=== PATIENT | female | born 1985 | race African-American/Black ===

== ENCOUNTER 2017-02-12 06:02 | Emergency (ER) | payer SELFPAY ==
[~2017-02-12] VITALS: Ht 162.6 cm; Wt 108.0 kg
[~2017-02-12 06:02] MED LIST: BACT800T5 PO; IBUP-232 PO; IBUP800T23 PO; MUPI2OIN TOPICAL; TYLE3 PO; ZOFR4TAB3 SL
[2017-02-12 06:06] VITALS: BP 132/90; PULSE 77; RESP 16; TEMP 97.7; O2SAT 98
--- NOTE | 2017-02-12 06:26 | PD ---
HPI Chief Complaint: Abdominal Pain Time Seen by Provider: 06:12 Travel History International Travel<30 days: No Contact w/Intl Traveler<30days: No Traveled to known affect area: No History of Present Illness HPI 32-year-old female arrives complaining of urinary frequency and suprapubic abdominal pain. She reports a clear vaginal discharge. She's had no nausea vomiting fever or diarrhea. Last menstruation was about 2 weeks ago. She is sexually active and believes she might have an STD. PFSH Past Medical History Diabetes: Yes Patient Takes Glucophage: No Diminished Hearing: No Thyroid Disease: Yes Tetanus Vaccination: Unknown Influenza Vaccination: No ?: Not LMP: 01/27/17 : 0 Past Surgical History Surgical History: No Previous Surgery Social History Alcohol Use: Yes (OCCASIONALLY) Tobacco Use: No Substance Use: No Allergies-Medications (Allergen,Severity, Reaction): Coded Allergies: *MDRO Multi-Drug Resistant Organism (Verified Adverse Reaction, Unknown, 10/03/16) MRSA (arm-09/30/16) Reported Meds & Prescriptions Reported Meds & Active Scripts Active No Active Prescriptions or Reported Medications Review of Systems Except as stated in HPI: all other systems reviewed are Neg General / Constitutional: No: Fever, Chills Genitourinary: Positive: Urgency, Frequency, Dysuria Physical Exam Narrative GENERAL: 32-year-old female well-nourished well-developed no acute distress : [place] normal. No significant discharge in vault. No suprapubic tenderness. SKIN: Warm and dry. HEAD: Atraumatic. Normocephalic. EYES: Pupils equal and round. No scleral icterus. No injection or drainage. ENT: No nasal bleeding or discharge. Mucous membranes pink and moist. NECK: Trachea midline. No JVD. CARDIOVASCULAR: Regular rate and rhythm. No murmur appreciated. RESPIRATORY: No accessory muscle use. Clear to auscultation. Breath sounds equal bilaterally. GASTROINTESTINAL: Abdomen soft, non-tender, nondistended. Hepatic and splenic margins not palpable. MUSCULOSKELETAL: No obvious deformities. No clubbing. No cyanosis. No edema. NEUROLOGICAL: Awake and alert. No obvious cranial nerve deficits. Motor grossly within normal limits. Normal speech. PSYCHIATRIC: Appropriate mood and affect; insight and judgment normal. Data Data Last Documented VS Vital Signs Date Time Temp Pulse Resp B/P Pulse Ox O2 Delivery O2 Flow Rate FiO2 02/12/17 06:20 16 02/12/17 06:06 97.7 77 132/90 98 Room Air Vital signs reviewed Orders Gc And Chlamydia Pcr (02/12/17 06:19) Wet Prep Profile (02/12/17 06:19) Ed Urine Pregnancytest Poc (02/12/17 06:19) Urinalysis - C+S If Indicated (02/12/17 06:24) Azithromycin Powd Pack (Zithromax Powd P (02/12/17 07:00) Ceftriaxone Inj (Rocephin Inj) (02/12/17 07:00) Lidocaine 1% Inj (50 Ml) (Xylocaine 1% I (02/12/17 07:00) Labs Laboratory Tests Test 02/12/17 02/12/17 06:20 06:30 Urine Color LIGHT-YELLOW Urine Turbidity CLEAR Urine pH 6.0 Urine Specific [place] 1.020 Urine Protein NEG mg/dL Urine Glucose (UA) NEG mg/dL Urine Ketones NEG mg/dL Urine Occult Blood TRACE Urine Nitrite NEG Urine Bilirubin NEG Urine Urobilinogen LESS THAN 2.0 MG/DL Urine Leukocyte Esterase NEG Urine RBC 1 /hpf Urine WBC 1 /hpf Urine Squamous Epithelial 1 /hpf Cells Urine Mucus FEW /lpf Microscopic Urinalysis Comment CULT NOT INDICATED Clue Cells (Wet Prep) NONE SEEN Vaginal Trichomonas (Wet Prep) NONE SEEN Vaginal Yeast (Wet Prep) NONE SEEN MDM Medical Decision Making Medical Screen Exam Complete: Yes Emergency Medical Condition: Yes Medical Record Reviewed: Yes Differential Diagnosis IUP, UTI, ectopic , ov torsion, appendicitis, TOA, cervicitis, BV, Trichomoniasis, ov cyst, hernia, mittelschmerz, pain from menstruation Narrative Course UA: no UTI Upreg: negative Wet prep: negative x 3 Empiric coverage for cervicitis provided. The patient has no obvious etiology for symptoms of dysuria. She is quite well-appearing and her abdomen is benign. We discussed return precautions and she is now ready for discharge. Diagnosis Primary Impression: Dysuria Referrals: Primary Care Physician 2 days Additional Instructions: You have a choice when it comes to health care, and we are glad that you chose [facility]. Hopefully, we have met your expectations on today's visit. You are welcome to return to [facility] at any time, as we are committed to meeting the health care needs of our community. Med/Other Pt SpecificInfo: No Change to Meds Scripts No Active Prescriptions or Reported Meds Disposition: 01 DISCHARGE HOME Condition: Eliecer Crane MD Feb 12, 2017 06:26
[2017-02-12 06:47] LABS: BLOOD, URINE TRACE (NEG); GLUCOSE,URINE NEG (NEG); KETONE, URINE NEG (NEG); MUCUS URINE FEW /lpf (OCC); NITRITE,URINE NEG (NEG); SQUAMOUS EPITHELIAL CELL URINE 1 /hpf (0-5); URINE COLOR LIGHT-YELLOW (YELLW/STRAW)
[2017-02-12 06:49] LABS: COMMENT (UR) CULT NOT INDICATED; CULTURE IF INDICATED CULT NOT INDICATED
[2017-02-12] MEDS ORDERED: cefTRIAXone 250 MG VIAL IM ONE (07:00)
[2017-02-12] MEDS ORDERED: AZITHROMYCIN PWD FOR SUSP 1 GM PACKET PO ONE (07:00)
[2017-02-12] MEDS ORDERED: LIDOCAINE HCL 1% 50 ML VIAL IM ONE (07:00)
[2017-02-12 09:44] LABS: CHLAMYDIA PCR NOT DETECTED (NOT DETECT); NEISSERIA PCR NOT DETECTED (NOT DETECT)
== END 2017-02-12 08:25 | disposition home or self-care (01) ==
LOC: NEPC 06:02
DX: R30.0 Dysuria (principal); N89.8 Other specified noninflammatory disorders of vagina; E11.9 Type 2 diabetes mellitus without complications
CPT/HCPCS: 81001; 84703; 87210; 87491; 87591; 96372; 99284; J0696

== ENCOUNTER 2017-04-11 22:39 | Emergency (ER) | payer SELFPAY ==
[~2017-04-11] VITALS: Ht 152.4 cm; Wt 95.0 kg
[2017-04-11 22:41] VITALS: BP 139/87; PULSE 94; RESP 16; TEMP 97.7; O2SAT 96
[2017-04-12] MEDS ORDERED: SODIUM CHLOR 0.9% 1000 ML INJ 1,000 ML IV SCH (00:41)
[2017-04-12] MEDS ORDERED: MORPHINE SULFATE 4 MG/ML INJ IV PUSH ONE (00:45)
[2017-04-12] MEDS ORDERED: ONDANSETRON HCL 4 MG/2 ML VIAL IVP ONE (00:45)
[2017-04-12] MEDS ORDERED: SODIUM CHLORIDE 0.9% FLUSH 10 ML FLUSH IV FLUSH PRN (00:45)
--- NOTE | 2017-04-12 00:46 | PD ---
HPI Chief Complaint: GI Complaint Time Seen by Provider: 00:35 Travel History International Travel<30 days: No Contact w/Intl Traveler<30days: No Traveled to known affect area: No History of Present Illness HPI 32-year-old female with no significant past medical history presents for evaluation of nausea, vomiting, diarrhea, abdominal pain. She reports that she took a nap at 5 PM. She woke up at 7 PM with the symptoms. She reports several episodes of nonbloody emesis, diarrhea as well as sharp periumbilical abdominal pain. Pain is constant, no aggravating or relieving factors. She denies any flank pain, fevers, vaginal bleeding or discharge, dysuria, chest pain or shortness of breath. She does endorse eating Amharic food and fast food earlier today, she does not know if this is concerning to her symptoms. No recent travel. No other complaints. PFSH Past Medical History Medical History: Denies Significant Hx Diabetes: Yes Diminished Hearing: No Thyroid Disease: Yes Influenza Vaccination: Yes ?: Unknown LMP: 04/04/17 : 0 Past Surgical History Surgical History: No Previous Surgery Social History Alcohol Use: Yes (OCCASIONALLY) Tobacco Use: Yes (2 CIG PER DAY) Substance Use: No Allergies-Medications (Allergen,Severity, Reaction): Coded Allergies: *MDRO Multi-Drug Resistant Organism (Verified Adverse Reaction, Unknown, ) MRSA (arm-09/30/16) Reported Meds & Prescriptions Reported Meds & Active Scripts Active Bentyl (Dicyclomine HCl) 20 Mg Tab 20 Mg PO TID Zofran Odt (Ondansetron Odt) 4 Mg Tab 4 Mg SL Q6HR PRN Review of Systems Except as stated in HPI: all other systems reviewed are Neg Physical Exam Narrative GENERAL: Well-developed well-nourished female who appears uncomfortable on initial examination. SKIN: Warm and dry. HEAD: Atraumatic. Normocephalic. EYES: Pupils equal and round. No scleral icterus. No injection or drainage. ENT: No nasal bleeding or discharge. Mucous membranes pink and moist. NECK: Trachea midline. No JVD. CARDIOVASCULAR: Regular rate and rhythm. No murmur appreciated. RESPIRATORY: No accessory muscle use. Clear to auscultation. Breath sounds equal bilaterally. GASTROINTESTINAL: Abdomen soft, focal right lower quadrant tenderness without guarding. No CVA tenderness. No right upper quadrant tenderness. MUSCULOSKELETAL: No obvious deformities. No clubbing. No edema NEUROLOGICAL: Awake and alert. No obvious cranial nerve deficits. Motor grossly within normal limits. Normal speech. PSYCHIATRIC: Appropriate mood and affect; insight and judgment normal. Data Data Last Documented VS Orders Complete Blood Count With Diff (04/12/17 00:41) Comprehensive Metabolic Panel (04/12/17 00:41) Lipase (04/12/17 00:41) Urinalysis - C+S If Indicated (04/12/17 00:41) Ct Abd/Pel W Iv Contrast(Rout) (04/12/17 00:41) Iv Access Insert/Monitor (04/12/17 00:41) Ecg Monitoring (04/12/17 00:41) Oximetry (04/12/17 00:41) Morphine Inj (Morphine Inj) (04/12/17 00:45) Ondansetron Inj (Zofran Inj) (04/12/17 00:45) Sodium Chlor 0.9% 1000 Ml Inj (Ns 1000 M (04/12/17 00:41) Sodium Chloride 0.9% Flush (Ns Flush) (04/12/17 00:45) Ed Urine Pregnancytest Poc (04/12/17 00:41) Iohexol 350 Inj (Omnipaque 350 Inj) (04/12/17 01:47) Labs Laboratory Tests Test 04/12/17 00:51 White Blood Count 8.9 TH/MM3 Red Blood Count 4.11 MIL/MM3 Hemoglobin 13.0 GM/DL Hematocrit 38.9 % Mean Corpuscular Volume 94.6 FL Mean Corpuscular Hemoglobin 31.6 PG Mean Corpuscular Hemoglobin 33.4 % Concent Red Cell Distribution Width 12.7 % Platelet Count 281 TH/MM3 Mean Platelet Volume 7.8 FL Neutrophils (%) (Auto) 82.2 % Lymphocytes (%) (Auto) 9.1 % Monocytes (%) (Auto) 6.6 % Eosinophils (%) (Auto) 1.7 % Basophils (%) (Auto) 0.4 % Neutrophils # (Auto) 7.3 TH/MM3 Lymphocytes # (Auto) 0.8 TH/MM3 Monocytes # (Auto) 0.6 TH/MM3 Eosinophils # (Auto) 0.2 TH/MM3 Basophils # (Auto) 0.0 TH/MM3 CBC Comment DIFF FINAL Differential Comment Urine Color YELLOW Urine Turbidity HAZY Urine pH 8.0 Urine Specific [place] 1.030 Urine Protein 30 mg/dL Urine Glucose (UA) NEG mg/dL Urine Ketones NEG mg/dL Urine Occult Blood NEG Urine Nitrite NEG Urine Bilirubin NEG Urine Urobilinogen LESS THAN 2.0 MG/DL Urine Leukocyte Esterase NEG Urine RBC 4 /hpf Urine WBC 1 /hpf Urine Squamous Epithelial 11 /hpf Cells Urine Mucus FEW /lpf Microscopic Urinalysis Comment CULT NOT INDICATED Sodium Level 138 MEQ/L Potassium Level 3.9 MEQ/L Chloride Level 104 MEQ/L Carbon Dioxide Level 26.5 MEQ/L Anion Gap 8 MEQ/L Blood Urea Nitrogen 14 MG/DL Creatinine 0.69 MG/DL Estimat Glomerular Filtration 119 ML/MIN Rate Random Glucose 104 MG/DL Calcium Level 8.5 MG/DL Total Bilirubin 0.5 MG/DL Aspartate Amino Transf 18 U/L (AST/SGOT) Alanine Aminotransferase 19 U/L (ALT/SGPT) Alkaline Phosphatase 69 U/L Total Protein 8.2 GM/DL Albumin 3.4 GM/DL Lipase 81 U/L [facility] Medical Decision Making Medical Screen Exam Complete: Yes Emergency Medical Condition: Yes Medical Record Reviewed: Yes Differential Diagnosis Gastroenteritis, appendicitis, tubo-ovarian abscess, ovarian torsion, colitis, biliary pathology Narrative Course 32-year-old female who woke up this evening at 7 PM with sharp periumbilical abdominal pain, nausea, vomiting, diarrhea. On examination her pain is focally reproducible to palpation right lower quadrant without guarding. CT of the abdomen and pelvis has been ordered to assess for any evidence of appendicitis. The patient be given IV fluids, Zofran, morphine, basic lab work has been ordered. 2300: At the end of my shift pending lab work and imaging studies the patient was signed out to Dr. Garcia. Scripts Dicyclomine (Bentyl)20 Mg Tab20 Mg PO TID #21 TAB Prov:Mendez Garcia MD 04/12/17 Ondansetron Odt (Zofran Odt)4 Mg Tab4 Mg SL Q6HR PRN (Nausea/Vomiting) #10 TAB Prov:Mendez Garcia MD 04/12/17 Osiel Mejia April 12, 2017 00:46
[2017-04-12 01:10] LABS: AUTOMATED NEUTROPHIL # 7.3 TH/MM3 (1.8-7.7); BASOPHIL % 0.4 % (0.0-2.0); EOSINOPHIL # 0.2 TH/MM3 (0-0.4); EOSINOPHIL % 1.7 % (0.0-4.0); HEMATOCRIT 38.9 % (35.0-46.0); HEMO FLAGS DIFF FINAL; LYMPH % 9.1 % (9.0-44.0); LYMPHOCYTE # 0.8 TH/MM3 (1.0-4.8); MEAN CELL VOLUME 94.6 FL (80.0-100.0); MEAN CORPUSCULAR HEMOGLOBIN 31.6 PG (27.0-34.0); MEAN CORPUSCULAR HGB CONC 33.4 % (32.0-36.0); MONO % 6.6 % (0.0-8.0); NEUT % 82.2 % (16.0-70.0); PLATELET COUNT 281 TH/MM3 (150-450); RED BLOOD COUNT 4.11 MIL/MM3 (4.00-5.30); RED CELL DISTRIBUTION WIDTH 12.7 % (11.6-17.2); WHITE BLOOD COUNT 8.9 TH/MM3 (4.0-11.0)
[2017-04-12 01:12] LABS: BLOOD, URINE NEG (NEG); COMMENT (UR) CULT NOT INDICATED; CULTURE IF INDICATED CULT NOT INDICATED; GLUCOSE,URINE NEG (NEG); KETONE, URINE NEG (NEG); MUCUS URINE FEW /lpf (OCC); NITRITE,URINE NEG (NEG); SQUAMOUS EPITHELIAL CELL URINE 11 /hpf (0-5); URINE COLOR YELLOW (YELLW/STRAW)
[2017-04-12 01:32] LABS: ALT (GPT) 19 U/L (10-53); ANION GAP 8 MEQ/L (5-15); AST (GOT) 18 U/L (15-37); BICARBONATE 26.5 MEQ/L (21.0-32.0); BLOOD UREA NITROGEN 14 MG/DL (7-18); CHLORIDE 104 MEQ/L (98-107); GLOMERULAR FILTRATION RATE 119 ML/MIN (>89); POTASSIUM 3.9 MEQ/L (3.5-5.1); SODIUM (NA) 138 MEQ/L (136-145)
[2017-04-12 01:35] LABS: ALKALINE PHOSPHATASE 69 U/L (45-117); TOTAL BILIRUBIN ADULT 0.5 MG/DL (0.2-1.0)
[2017-04-12] MEDS ORDERED: IOHEXOL 350 MG/ML 10 ML VIAL (for RAD DIAG) IV ONE (01:47)
--- NOTE | 2017-04-12 02:01 | RADRPT ---
EXAM DATE/TIME: 04/12/2017 01:31 [place] COMPARISON: No previous studies available for comparison. INDICATIONS : Diffuse abdominal pain. IV CONTRAST: 100 cc Omnipaque 350 (iohexol) IV ORAL CONTRAST: No oral contrast ingested. RADIATION DOSE: 22.38 CTDIvol (mGy) MEDICAL HISTORY : Diabetes mellitus type 2. SURGICAL HISTORY : None. ENCOUNTER: Initial ACUITY: 1 day PAIN SCALE: 10/10 LOCATION: abdomen TECHNIQUE: Volumetric scanning of the abdomen and pelvis was performed. Using automated exposure control and ad justment of the mA and/or kV according to patient size, radiation dose was kept as low as reasonably achievable to obtain optimal diagnostic quality images. FINDINGS: LOWER LUNGS: The visualized lower lungs are clear. LIVER: Homogeneous density without lesion. There is no dilation of the biliary tree. No calcified gallston es. SPLEEN: Normal size without lesion. PANCREAS: Within normal limits. KIDNEYS: Normal in size and shape. There is no mass, stone or hydronephrosis. ADRENAL GLANDS: Within normal limits. VASCULAR: There is no aortic aneurysm. BOWEL/MESENTERY: The stomach, small bowel, and colon demonstrate no acute abnormality. There is no free intraperitone al air or fluid. The appendix is unremarkable. No inflammatory changes are seen. There is stool in th e colon. ABDOMINAL WALL: Within normal limits. RETROPERITONEUM: There is no lymphadenopathy. BLADDER: No wall thickening or mass. REPRODUCTIVE: There is a diffusely enlarged bulky fibroid uterus measuring at least 13.3 x 7.5 cm. There is a parti ally calcified fibroid which is pedunculated off the superior aspect of the uterus. This measures noel roximately 3.8 cm. No free fluid in the cul-de-sac. The ovaries are not visualized. INGUINAL: There is no lymphadenopathy or hernia. MUSCULOSKELETAL: Within normal limits for patient age. CONCLUSION: 1. Bulky enlarged fibroid uterus. 2. Otherwise, unremarkable exam for patient's age. Flavio Cox MD on April 12, 2017 at 1:55 Board Certified Radiologist. This report was verified electronically.
[2017-04-12] MEDS ORDERED: ZOFR4TAB3 SL (02:44)
[2017-04-12] MEDS ORDERED: BENT20TA PO (02:44)
--- NOTE | 2017-04-12 02:44 | PD ---
Physical Exam Narrative Patient was seen by my delinquent tax collector assistant and signed out to me. Data Data Last Documented VS Vital Signs Date Time Temp Pulse Resp B/P Pulse Ox O2 Delivery O2 Flow Rate FiO2 04/11/17 22:41 97.7 94 16 139/87 96 Room Air Orders Complete Blood Count With Diff (04/12/17 00:41) Comprehensive Metabolic Panel (04/12/17 00:41) Lipase (04/12/17 00:41) Urinalysis - C+S If Indicated (04/12/17 00:41) Ct Abd/Pel W Iv Contrast(Rout) (04/12/17 00:41) Iv Access Insert/Monitor (04/12/17 00:41) Ecg Monitoring (04/12/17 00:41) Oximetry (04/12/17 00:41) Morphine Inj (Morphine Inj) (04/12/17 00:45) Ondansetron Inj (Zofran Inj) (04/12/17 00:45) Sodium Chlor 0.9% 1000 Ml Inj (Ns 1000 M (04/12/17 00:41) Sodium Chloride 0.9% Flush (Ns Flush) (04/12/17 00:45) Ed Urine Pregnancytest Poc (04/12/17 00:41) Iohexol 350 Inj (Omnipaque 350 Inj) (04/12/17 01:47) Labs Laboratory Tests Test 04/12/17 00:51 White Blood Count 8.9 TH/MM3 Red Blood Count 4.11 MIL/MM3 Hemoglobin 13.0 GM/DL Hematocrit 38.9 % Mean Corpuscular Volume 94.6 FL Mean Corpuscular Hemoglobin 31.6 PG Mean Corpuscular Hemoglobin 33.4 % Concent Red Cell Distribution Width 12.7 % Platelet Count 281 TH/MM3 Mean Platelet Volume 7.8 FL Neutrophils (%) (Auto) 82.2 % Lymphocytes (%) (Auto) 9.1 % Monocytes (%) (Auto) 6.6 % Eosinophils (%) (Auto) 1.7 % Basophils (%) (Auto) 0.4 % Neutrophils # (Auto) 7.3 TH/MM3 Lymphocytes # (Auto) 0.8 TH/MM3 Monocytes # (Auto) 0.6 TH/MM3 Eosinophils # (Auto) 0.2 TH/MM3 Basophils # (Auto) 0.0 TH/MM3 CBC Comment DIFF FINAL Differential Comment Urine Color YELLOW Urine Turbidity HAZY Urine pH 8.0 Urine Specific [place] 1.030 Urine Protein 30 mg/dL Urine Glucose (UA) NEG mg/dL Urine Ketones NEG mg/dL Urine Occult Blood NEG Urine Nitrite NEG Urine Bilirubin NEG Urine Urobilinogen LESS THAN 2.0 MG/DL Urine Leukocyte Esterase NEG Urine RBC 4 /hpf Urine WBC 1 /hpf Urine Squamous Epithelial 11 /hpf Cells Urine Mucus FEW /lpf Microscopic Urinalysis Comment CULT NOT INDICATED Sodium Level 138 MEQ/L Potassium Level 3.9 MEQ/L Chloride Level 104 MEQ/L Carbon Dioxide Level 26.5 MEQ/L Anion Gap 8 MEQ/L Blood Urea Nitrogen 14 MG/DL Creatinine 0.69 MG/DL Estimat Glomerular Filtration 119 ML/MIN Rate Random Glucose 104 MG/DL Calcium Level 8.5 MG/DL Total Bilirubin 0.5 MG/DL Aspartate Amino Transf 18 U/L (AST/SGOT) Alanine Aminotransferase 19 U/L (ALT/SGPT) Alkaline Phosphatase 69 U/L Total Protein 8.2 GM/DL Albumin 3.4 GM/DL Lipase 81 U/L [facility] Supervised Visit with FINESSE: Yes Interpretation(s) Last Impressions Abdomen/Pelvis CT 04/12/17 0041 Signed Impressions: Service Date/Time: Wednesday, April 12, 2017 01:31 - CONCLUSION: 1. Bulky enlarged fibroid uterus. 2. Otherwise, unremarkable exam for patient's age. Flavio Cox MD 2:39 AM. CBC within normal limit. CMP within normal limit. UA is negative. Diagnosis Primary Impression: Gastroenteritis Patient Instructions: General Instructions Additional Instruction: Take medications as directed. Follow-up with personal physician. Return if persistent problem or worse. Med/Other Pt SpecificInfo: Prescription(s) given Scripts Dicyclomine (Bentyl)20 Mg Tab20 Mg PO TID #21 TAB Prov:Mendez Garcia MD 04/12/17 Ondansetron Odt (Zofran Odt)4 Mg Tab4 Mg SL Q6HR PRN (Nausea/Vomiting) #10 TAB Prov:Mendez Garcia MD 04/12/17 Disposition: 01 DISCHARGE HOME Condition: Stable Mendez Garcia MD April 12, 2017 02:44
== END 2017-04-12 03:06 | disposition home or self-care (01) ==
LOC: NEPC 22:39
DX: Z72.0 Tobacco use (principal); K52.9 Noninfective gastroenteritis and colitis, unspecified; D25.9 Leiomyoma of uterus, unspecified
CPT/HCPCS: 74177; 80053; 81001; 83690; 84703; 85025; 96374; 96375; 99284; J2270; J2405; J7030; Q9967

== ENCOUNTER 2017-05-10 20:26 | Emergency (ER) | payer SELFPAY ==
[~2017-05-10] VITALS: Ht 152.4 cm; Wt 114.0 kg
[~2017-05-10 20:26] MED LIST changes: -BACT800T5 PO; +BENT20TA PO; -IBUP-232 PO; -IBUP800T23 PO; -MUPI2OIN TOPICAL; -TYLE3 PO
[2017-05-10 20:31] VITALS: BP 116/77; PULSE 115; RESP 16; TEMP 98.2; O2SAT 97
[2017-05-10] MEDS ORDERED: BROMSYP PO (20:47)
--- NOTE | 2017-05-10 20:48 | PD ---
HPI Chief Complaint: ENT Complaint Time Seen by Provider: 20:41 Travel History International Travel<30 days: No Contact w/Intl Traveler<30days: No Traveled to known affect area: No History of Present Illness HPI 32-year-old female presents emergency department for evaluation of sore throat, nasal congestion, cough for one week. Symptoms severity mild. Slightly improved with [id number] cough medicine. She reports that her spouse has similar symptoms at home. She denies fevers, chills, headache, rash. She has no past medical history. No allergies to meds. PFSH Past Medical History Medical History: Denies Significant Hx Diabetes: Yes Patient Takes Glucophage: No Diminished Hearing: No Thyroid Disease: Yes Tetanus Vaccination: > 5 Years Influenza Vaccination: Yes ?: Unknown : 0 Past Surgical History Surgical History: No Previous Surgery Social History Alcohol Use: Yes (OCCASIONALLY) Tobacco Use: Yes (2 CIG PER WEEK) Substance Use: No Allergies-Medications (Allergen,Severity, Reaction): Coded Allergies: *MDRO Multi-Drug Resistant Organism (Verified Adverse Reaction, Unknown, ) MRSA (arm-09/30/16) Reported Meds & Prescriptions Reported Meds & Active Scripts Active No Active Prescriptions or Reported Medications Review of Systems Except as stated in HPI: all other systems reviewed are Neg Physical Exam Narrative GENERAL: Well-nourished, well-developed patient. SKIN: Focused skin assessment warm/dry. No rashes HEAD: Normocephalic. Atraumatic EYES: No scleral icterus. No injection or drainage. NECK: Supple, trachea midline. No JVD or lymphadenopathy. ENT: Mild pharyngeal/tonsillar erythema without exudate. Uvula midline. CARDIOVASCULAR: Regular rate and rhythm without murmurs, gallops, or rubs. RESPIRATORY: Breath sounds equal bilaterally. No accessory muscle use. GASTROINTESTINAL: Abdomen soft, non-tender, nondistended. MUSCULOSKELETAL: No cyanosis, or edema. BACK: Nontender without obvious deformity. No CVA tenderness. Data Data Last Documented VS Vital Signs Date Time Temp Pulse Resp B/P Pulse Ox O2 Delivery O2 Flow Rate FiO2 05/10/17 20:40 05/10/17 20:39 Room Air 05/10/17 20:31 98.2 115 16 97 MDM Medical Decision Making Medical Screen Exam Complete: Yes Emergency Medical Condition: Yes Differential Diagnosis Viral pharyngitis, strep pharyngitis, bronchitis, pneumonia Narrative Course 32-year-old female presents emergency department for evaluation of nasal congestion, sore throat, cough 1 week. Patient's symptoms are mild. Her exam is consistent with a viral upper respiratory infection. Diagnosis Primary Impression: Viral URI with cough Referrals: Primary Care Physician Departure Forms: Tests/Procedures, Work Release Enter return to work date: May 12, 2017 Scripts Fhfqjoeshnrauiu-Wzzdhhsacjybufa-AM Liq (Bromfed DM Liq)30-2-10 Mg/5 Ml Syrp5 Ml PO Q6H PRN (COUGH AND/OR COLD SYMPTOMS) #120 ML Ref 0 Prov:Martina Lo 05/10/17 Disposition: 01 DISCHARGE HOME Condition: Stable Martina Lo May 10, 2017 20:48
== END 2017-05-10 20:56 | disposition home or self-care (01) ==
LOC: PHEFT 20:26
DX: J06.9 Acute upper respiratory infection, unspecified (principal); R05 Cough; R09.81 Nasal congestion; J02.9 Acute pharyngitis, unspecified; E11.9 Type 2 diabetes mellitus without complications; Z72.0 Tobacco use
CPT/HCPCS: 99283

== ENCOUNTER 2017-11-11 11:31 | Emergency (ER) | payer SELFPAY ==
[~2017-11-11] VITALS: Ht 152.4 cm; Wt 126.0 kg
[~2017-11-11 11:31] MED LIST changes: -BENT20TA PO; +BROMSYP PO; -ZOFR4TAB3 SL
[2017-11-11 11:40] VITALS: BP 151/91; PULSE 96; RESP 16; TEMP 98.9; O2SAT 97
[2017-11-11 12:05] LABS: BLOOD, URINE SMALL (NEG); GLUCOSE,URINE NEG (NEG); KETONE, URINE NEG (NEG); NITRITE,URINE NEG (NEG)
[2017-11-11 12:29] LABS: METHOD OF COLLECTION VOIDED; URINE COLOR YELLOW (YELLW/STRAW)
[2017-11-11 12:31] LABS: MUCUS URINE RARE /lpf (OCC)
[2017-11-11 12:32] LABS: RBC, URINE 0-3 /hpf (0-3); SQUAMOUS EPITHELIAL CELL URINE >8 /hpf (0-5); WBC, URINE 0-2 /hpf (0-5)
[2017-11-11 12:33] LABS: BACTERIA, URINE RARE /hpf; COMMENT (UR) CULT NOT INDICATED; CULTURE IF INDICATED CULT NOT INDICATED
--- NOTE | 2017-11-11 13:00 | PD ---
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 She denies any vomiting, fevers, abdominal pains, or any other symptoms. She is sexually active and has her partner with her, states that she does practice oral sex. Partner denies any symptoms. Modifying Factors: None Associated Signs & Symptoms: Vaginal discharge, sore throat Risk Factors: Sexually active PFSH Past Medical History Diabetes: Yes Patient Takes Glucophage: No Diminished Hearing: No Thyroid Disease: Yes Influenza Vaccination: Yes ?: Not LMP: 11/02/17 : 0 Past Surgical History Oral Surgery: Yes Social History Alcohol Use: Yes (OCCASIONALLY) Tobacco Use: No Substance Use: No Allergies-Medications (Allergen,Severity, Reaction): Coded Allergies: *MDRO Multi-Drug Resistant Organism (Verified Adverse Reaction, Unknown, ) MRSA (arm-09/30/16) Reported Meds & Prescriptions Reported Meds & Active Scripts Active Bromfed DM Liq (Yvxodtpymtnysep-Shggzoacoggctuz-BF Liq) 30-2-10 Mg/5 Ml Syrp 5 Ml PO Q6H PRN Review of Systems Except as stated in HPI: all other systems reviewed are Neg Physical Exam Narrative GENERAL: Well-developed young -[place] female patient currently in mild distress. Awake and oriented 3. SKIN: Focused skin assessment warm/dry. HEAD: Atraumatic. Normocephalic. EYES: Pupils equal and round. No scleral icterus. No injection or drainage. ENT: No nasal bleeding or discharge. Mucous membranes pink and moist. There is notable pharyngeal erythema with right tonsillar exudates. NECK: Trachea midline. No JVD. CARDIOVASCULAR: Regular rate and rhythm. No murmur appreciated. RESPIRATORY: No accessory muscle use. Clear to auscultation. Breath sounds equal bilaterally. GASTROINTESTINAL: Abdomen soft, non-tender, nondistended. Hepatic and splenic margins not palpable. MUSCULOSKELETAL: No obvious deformities. No clubbing. No cyanosis. No edema. NEUROLOGICAL: Awake and alert. No obvious cranial nerve deficits. Motor grossly within normal limits. Normal speech. PSYCHIATRIC: Appropriate mood and affect; insight and judgment normal. Data Data Last Documented VS Vital Signs Date Time Temp Pulse Resp B/P (MAP) Pulse Ox O2 Delivery O2 Flow Rate FiO2 11/11/17 13:32 99.3 95 17 129/61 (83) 96 Room Air Orders Orders Urinalysis - C+S If Indicated (11/11/17 11:42) Ed Urine Pregnancytest Poc (11/11/17 11:42) Gc And Chlamydia Pcr (11/11/17 12:54) Wet Prep Profile (11/11/17 12:54) Group A Rapid Strep Screen (11/11/17 12:54) Ibuprofen (Motrin) (11/11/17 14:00) Penicillin V Potassium (Veetids) (11/11/17 14:00) Labs Laboratory Tests Test 11/11/17 11:40 11/11/17 13:09 Urine Collection Type VOIDED Urine Color YELLOW Urine Turbidity CLEAR Urine pH 8.0 Urine Specific [place] 1.026 Urine Protein NEG mg/dL Urine Glucose (UA) NEG mg/dL Urine Ketones NEG mg/dL Urine Occult Blood SMALL Urine Nitrite NEG Urine Bilirubin NEG Urine Leukocyte Esterase NEG Urine RBC 0-3 /hpf Urine WBC 0-2 /hpf Urine Squamous Epithelial Cells >8 /hpf Urine Bacteria RARE /hpf Urine Mucus RARE /lpf Microscopic Urinalysis Comment CULT NOT INDICATED Clue Cells (Wet Prep) NONE SEEN Vaginal Trichomonas (Wet Prep) NONE SEEN Vaginal Yeast (Wet Prep) NONE SEEN MDM Medical Decision Making Medical Screen Exam Complete: Yes Emergency Medical Condition: Yes Medical Record Reviewed: Yes Interpretation(s) Laboratory Tests Test 11/11/17 11:40 11/11/17 13:09 Urine Occult Blood SMALL (NEG) Urine Bacteria RARE /hpf (NONE) Differential Diagnosis Strep pharyngitis versus URI versus vaginitis versus cervicitis Narrative Course Wet prep is negative. GC is pending. Rapid strep is positive for strep. At this point, my plan would be to treat her for strep pharyngitis. Considering patient's symptoms, BV cannot be ruled out and my plan would be to treat her Flagyl also. Follow-up with primary care physician as needed. Return for worsening in symptoms as needed. The plan has been discussed with her and she states understanding. Diagnosis Primary Impression: Vaginal discharge Additional Impression: Strep pharyngitis Med/Other Pt SpecificInfo: Prescription(s) given Scripts Ibuprofen (Ibuprofen) 600 Mg Tab 600 MG PO Q6H Y for Pain/Inflammation, #20 TAB 0 Refills Prov: Cecelia Rangel MD 11/11/17 Metronidazole (Flagyl) 500 Mg Tab 500 MG PO TID for Infection for 7 Days, TAB 0 Refills Prov: Cecelia Rangel MD 11/11/17 Penicillin V Potassium (Penicillin V Potassium) 500 Mg Tab 500 MG PO Q6H for Infection for 7 Days, #28 TAB 0 Refills Prov: Cecelia Rangel MD 11/11/17 Disposition: 01 DISCHARGE HOME Condition: Stable Cecelia Rangel MD Nov 11, 2017 13:00
[2017-11-11 13:32] VITALS: BP 129/61; PULSE 95; RESP 17; TEMP 99.3; O2SAT 96
[2017-11-11] MEDS ORDERED: METR-1 PO (13:50)
[2017-11-11] MEDS ORDERED: IBUP-232 PO (13:50)
[2017-11-11] MEDS ORDERED: PENI500T PO (13:50)
[2017-11-11] MEDS ORDERED: IBUPROFEN 600 MG TAB PO ONE (14:00)
[2017-11-11] MEDS ORDERED: PENICILLIN V POTASSIUM 500 MG TAB PO ONE (14:00)
[2017-11-11 17:13] LABS: CHLAMYDIA PCR NOT DETECTED (NOT DETECT); NEISSERIA PCR NOT DETECTED (NOT DETECT)
== END 2017-11-11 14:09 | disposition home or self-care (01) ==
LOC: PHED 11:31
DX: N89.8 Other specified noninflammatory disorders of vagina (principal); J02.0 Streptococcal pharyngitis; B95.0 Streptococcus, group A, as the cause of diseases classified elsewhere
CPT/HCPCS: 81001; 84703; 87210; 87491; 87591; 87880; 99284

== ENCOUNTER 2018-03-13 23:55 | Emergency (ER) | payer OTHER ==
[~2018-03-13 23:55] MED LIST changes: -BROMSYP PO; +METF500T PO
[2018-03-14 00:06] VITALS: BP 128/83; PULSE 79; RESP 18; TEMP 98.4; O2SAT 100
--- NOTE | 2018-03-14 00:44 | PD ---
HPI Chief Complaint: Edema Time Seen by Provider: 00:36 Travel History International Travel<30 days: No Contact w/Intl Traveler<30days: No Traveled to known affect area: No History of Present Illness HPI The patient was seen and examined in the presence of the nurse. This patient wears 2 rings on her right fourth finger. She woke up from a nap and reported that she could not get them off her finger. She has swelling about the knuckle. There is no injury. Repeated efforts were to pull rings off have made the swelling worse. Duration one day. 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 Normal insight and judgment. SKIN: Focused skin assessment reveals no rash or ulcers. Skin is warm and dry. Palpation shows no induration or nodules. Right hand: Patient has 2 ring stuck in there is some swelling to the PIP joint. No sign of infection. Data Data Last Documented VS Vital Signs Date Time Temp Pulse Resp B/P (MAP) Pulse Ox O2 Delivery O2 Flow Rate FiO2 03/14/18 00:06 98.4 79 18 128/83 (98) 100 MDM Medical Decision Making Medical Screen Exam Complete: Yes Emergency Medical Condition: Yes Medical Record Reviewed: Yes Differential Diagnosis Stuck rings, finger swelling, cellulitis Narrative Course I have reviewed the patient's electronic medical record. Our health physics technician is going to use the ring cutter to cut her rings off. Patient is agreeable. Diagnosis Primary Impression: Swelling of finger joint of right hand Additional Instructions: The patient was advised to follow up with their physician and return if they worsen. Med/Other Pt SpecificInfo: Other Disposition: 01 DISCHARGE HOME Condition: Stable Kocisko,Thaddeus J. MD Mar 14, 2018 00:44
== END 2018-03-14 01:40 | disposition home or self-care (01) ==
LOC: NEPD 23:55
DX: M79.89 Other specified soft tissue disorders (principal); E11.9 Type 2 diabetes mellitus without complications; Z79.84 Long term (current) use of oral hypoglycemic drugs
CPT/HCPCS: 99282

== ENCOUNTER 2018-04-02 19:23 | Emergency (ER) | payer OTHER ==
[2018-04-02 19:39] VITALS: BP 123/63; PULSE 94; RESP 18; TEMP 99.2; O2SAT 100
[2018-04-02] MEDS ORDERED: ROBA500T PO (19:55)
[2018-04-02] MEDS ORDERED: IBUP1TAB7 PO (19:55)
--- NOTE | 2018-04-02 19:55 | PD ---
HPI Chief Complaint: Pain: Acute or Chronic Time Seen by Provider: 19:45 Travel History International Travel<30 days: No Contact w/Intl Traveler<30days: No Traveled to known affect area: No History of Present Illness HPI 33-year-old female with no significant medical history presents emergency department for evaluation of left-sided back pain. This started today while at work. 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 The pain is in her mid to low back. Is exacerbated with transition in positioning. When she lies still it does not hurt. It does not radiate anywhere. It is moderate in severity. She denies any urinary symptoms. She has no focal deficits weakness. No other symptoms to report. 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 SKIN: Focused skin assessment warm/dry. HEAD: Normocephalic. EYES: No scleral icterus. No injection or drainage. NECK: Supple, trachea midline. No JVD or lymphadenopathy. CARDIOVASCULAR: Regular rate and rhythm without murmurs, gallops, or rubs. RESPIRATORY: Breath sounds equal bilaterally. No accessory muscle use. GASTROINTESTINAL: Abdomen soft, non-tender, nondistended. MUSCULOSKELETAL: No cyanosis, or edema. 5+ strength equal bilateral extremities. BACK: Tenderness elicited to palpation in the lumbar paraspinous musculature on the left. No spinal tenderness. Without obvious deformity. No CVA tenderness. Data Data Last Documented VS Vital Signs Date Time Temp Pulse Resp B/P (MAP) Pulse Ox O2 Delivery O2 Flow Rate FiO2 5/2/18 19:39 99.2 94 18 123/63 (83) 100 Orders Orders Ketorolac Inj (Toradol Inj) (04/02/18 20:00) Orphenadrine Inj (Norflex Inj) (04/02/18 20:00) Ed Discharge Order (04/02/18 19:50) MDM Medical Decision Making Medical Screen Exam Complete: Yes Emergency Medical Condition: Yes Medical Record Reviewed: Yes Differential Diagnosis Muscle strain versus discogenic pain versus radiculopathy versus UTI versus renal calculi Narrative Course 33-year-old female presents emergency department for evaluation of low back pain on the left. There is tenderness elicited palpation of the paraspinous musculature of the lumbar spine. This is likely muscle strain. Patient is counseled on care, encouraged follow-up with primary care provider, and return immediately with acute worsening symptoms. Diagnosis Primary Impression: Low back strain Qualified Codes: S39.012A - Strain of muscle, fascia and tendon of lower back , initial encounter Referrals: Primary Care Physician Patient Instructions: General Instructions, Low Back Strain (ED) Additional Instructions: Ice and/or warm moist heat may help to alleviate symptoms Avoid activity that exacerbates pain Follow-up with a primary care provider Return immediately with any acute worsening of symptoms Med/Other Pt SpecificInfo: Prescription(s) given Scripts Ibuprofen (Ibuprofen) 800 Mg Tab 800 MG PO Q8H Y for Pain/Inflammation, #30 TAB 0 Refills Prov: Juany Quigley 04/02/18 Methocarbamol (Robaxin) 500 Mg Tab 500 MG PO QID Y for MUSCLE SPASM, #20 TAB 0 Refills Prov: Juany Quigley 04/02/18 Disposition: 01 DISCHARGE HOME Condition: Stable Juany Quigley April 02, 2018 19:55
[2018-04-02] MEDS ORDERED: ORPHENADRINE INJ 60 MG/2 ML AMP IM ONE (20:00)
[2018-04-02] MEDS ORDERED: KETOROLAC TROMETHAMINE 60 MG/2 ML (IM) VIAL IM ONE (20:00)
== END 2018-04-02 20:08 | disposition home or self-care (01) ==
LOC: NEPK 19:23
DX: S39.012A Strain of muscle, fascia and tendon of lower back, initial encounter (principal); X58.XXXA Exposure to other specified factors, initial encounter
CPT/HCPCS: 96372; 99283; J1885; J2360

== ENCOUNTER 2018-04-30 07:24 | Emergency (ER) | payer OTHER ==
[~2018-04-30 07:24] MED LIST changes: +IBUP1TAB7 PO; +ROBA500T PO
[2018-04-30 07:27] VITALS: BP 106/61; PULSE 94; RESP 17; TEMP 98.5; O2SAT 98
--- NOTE | 2018-04-30 08:10 | PD ---
HPI Chief Complaint: Back/ Neck Pain or Injury Time Seen by Provider: 08:00 Travel History International Travel<30 days: No Contact w/Intl Traveler<30days: No Traveled to known affect area: No History of Present Illness HPI 33-year-old female presents to the emergency department for evaluation of left low back pain that started this morning when she woke up. Patient denies any traumatic injury. No fevers or chills. No loss of bowel or bladder control. No saddle anesthesias. Patient states the pain is exacerbated by movement, slightly alleviated with lying still. Patient denies any radiation of the pain. Patient denies urinary symptoms. She does not believe she is , but states there is a chance. She states she took ibuprofen at 4 AM. She took a muscle relaxant yesterday. Patient denies any history of IV drug use. Patient states she is prediabetic and takes metformin. She is ambulatory. She denies any weakness or syncope. Current pain is 10/10. Mild severity. 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 Afebrile., SKIN: Focused skin assessment warm/dry. HEAD: Normocephalic. Atraumatic. EYES: No scleral icterus. No injection or drainage. NECK: Supple, trachea midline. No JVD or lymphadenopathy. CARDIOVASCULAR: Regular rate and rhythm without murmurs, gallops, or rubs. Bilateral radial and pedal pulses are 2+. RESPIRATORY: Breath sounds equal bilaterally. No accessory muscle use. Lung sounds are clear to auscultation. GASTROINTESTINAL: Abdomen soft, non-tender, nondistended. No abdominal pain to palpation. MUSCULOSKELETAL: No cyanosis, or edema. Bilateral upper and lower extremity strength 5/5. All extremities are neurovascularly intact. BACK: Nontender without obvious deformity. No CVA tenderness. No midline spinal tenderness. She has tenderness over the left lumbar paraspinal musculature. This pain is exacerbated with movement. Data Data Last Documented VS Vital Signs Date Time Temp Pulse Resp B/P (MAP) Pulse Ox O2 Delivery O2 Flow Rate FiO2 04/30/18 07:27 98.5 94 17 106/61 (76) 98 Orders Orders Urinalysis - C+S If Indicated (04/30/18 08:07) Ed Urine Pregnancytest Poc (04/30/18 08:07) Orphenadrine Inj (Norflex Inj) (04/30/18 08:30) Dexamethasone Inj (Decadron Inj) (04/30/18 08:30) Labs Laboratory Tests Test 04/30/18 08:15 Urine Color YELLOW Urine Turbidity CLEAR Urine pH 6.0 Urine Specific [place] 1.027 Urine Protein NEG mg/dL Urine Glucose (UA) NEG mg/dL Urine Ketones NEG mg/dL Urine Occult Blood TRACE Urine Nitrite NEG Urine Bilirubin NEG Urine Urobilinogen LESS THAN 2.0 MG/DL Urine Leukocyte Esterase NEG Urine RBC 1 /hpf Urine WBC 1 /hpf Urine Squamous Epithelial Cells 3 /hpf Microscopic Urinalysis Comment CULT NOT INDICATED MDM Medical Decision Making Medical Screen Exam Complete: Yes Emergency Medical Condition: Yes Medical Record Reviewed: Yes Differential Diagnosis Muscle strain versus muscle spasm versus UTI Narrative Course 33-year-old female presents to the emergency department for evaluation of left low back pain that started this morning. She appears well on exam. No red flag symptoms. No traumatic injury. UA and urine test ordered and pending. UA is negative for acute infection. Urine test is negative. Patient is given dexamethasone 8 mg IM, Norflex 60 mg IM. She will be discharged with a prescription for ibuprofen, Robaxin, Medrol Dosepak. She is instructed to use a heating pad on low and follow-up with her primary care physician. The patient was discharged in stable condition with instructions, including return instructions and follow up instructions. Diagnosis Primary Impression: Low back pain Qualified Codes: M54.5 - Low back pain Referrals: Primary Care Physician call for appointment Patient Instructions: Acute Low Back Pain (ED), General Instructions Departure Forms: Tests/Procedures, Work Release Enter return to work date: May 02, 2018 Additional Instructions: Take ibuprofen as directed as needed with food for pain. Take Robaxin as directed as needed. Take Medrol Dosepak as directed. Start this tomorrow. Heating pad on low for 20 minutes 4-5 times daily Follow-up with a primary care physician. Return to the emergency department for any acute worsening of symptoms. Med/Other Pt SpecificInfo: Prescription(s) given Scripts Methylprednisolone Dosepak (Medrol Dosepak) 4 Mg Dspk 4 MG PO DIRECTED, #1 DSPK 0 Refills Per Pharmacist direction Prov: Lilo Mckoy 04/30/18 Methocarbamol (Robaxin) 750 Mg Tab 750 MG PO TID Y for MUSCLE SPASM, #21 TAB 0 Refills Prov: Lilo Mckoy 04/30/18 Ibuprofen (Ibuprofen) 800 Mg Tab 800 MG PO Q8H Y for Pain/Inflammation, #30 TAB 0 Refills Prov: Lilo Mckoy 04/30/18 Disposition: 01 DISCHARGE HOME Condition: Stable Lilo Mckoy April 30, 2018 08:10
[2018-04-30] MEDS ORDERED: DEXAMETHASONE SOD PHOS 4 MG/ML VIAL IM ONE (08:30)
[2018-04-30] MEDS ORDERED: ORPHENADRINE INJ 60 MG/2 ML AMP IM ONE (08:30)
[2018-04-30 08:33] LABS: BILIRUBIN, URINE NEG (NEG); BLOOD, URINE TRACE (NEG); GLUCOSE,URINE NEG (NEG); KETONE, URINE NEG (NEG); NITRITE,URINE NEG (NEG); SQUAMOUS EPITHELIAL CELL URINE 3 /hpf (0-5); URINE COLOR YELLOW (YELLW/STRAW); URINE LEUKOCYTE ESTERASE NEG (NEG)
[2018-04-30] MEDS ORDERED: ROBA750T PO (08:45)
[2018-04-30] MEDS ORDERED: MEDR4PAK PO (08:45)
[2018-04-30] MEDS ORDERED: IBUP1TAB7 PO (08:45)
== END 2018-04-30 09:15 | disposition home or self-care (01) ==
LOC: NEPD 07:24
DX: M54.5 Low back pain (principal); E11.9 Type 2 diabetes mellitus without complications; Z79.84 Long term (current) use of oral hypoglycemic drugs
CPT/HCPCS: 81001; 84703; 96372; 99283; J1100; J2360